=== PATIENT | female | born 1970 | race Caucasian/White ===

== ENCOUNTER 2025-01-16 11:00 | Inpatient (IN) | payer BC ==
[2025-01-16 11:22] VITALS: BMI 42.4
[2025-01-26] MEDS ORDERED: metroNIDAZOLE 500 MG (100 mL) BAG ONE (06:22)
[2025-01-26] MEDS ORDERED: Acetaminophen 325 MG TAB ONE (06:22)
[2025-01-26] MEDS ORDERED: Heparin 5,000 UNITS/ML VIAL ONE (06:22)
[2025-01-26] MEDS ORDERED: Bupivacaine 0.25% HCL 30 ML VIAL ONE (06:55)
[2025-01-26] MEDS ORDERED: Lidocaine 1% PF 5 ML VIAL ONE (07:04)
[2025-01-26] MEDS ORDERED: fentaNYL PF 100 MCG/2 ML SYRINGE ONE ×2 (07:04→09:19)
[2025-01-26] MEDS ORDERED: Rocuronium Bromide 10 MG/ML (10ML VIAL) ONE (07:35)
[2025-01-26] MEDS ORDERED: PROPOFOL 200 MG/20 ML VIAL ONE (07:35)
[2025-01-26] MEDS ORDERED: Ondansetron PF 4 MG/2 ML Vial ONE ×2 (09:08→10:51)
[2025-01-26] MEDS ORDERED: SUGAMMADEX SODIUM 200 MG/2 ML VIAL ONE (09:09)
[2025-01-26] MEDS ORDERED: hydrALAZINE 20 MG/ML VIAL SLOW IVP PRN (09:39)
[2025-01-26] MEDS ORDERED: HYDROmorphone 0.5 MG/0.5 ML SYRINGE ONE ×2 (09:57→10:35)
[2025-01-26] MEDS: Ondansetron PF 4 MG/2 ML Vial IVP PRN (12:36)
[2025-01-26] MEDS: Ketorolac Tromethamine 30 MG (1 mL) VIAL IVP SCH (12:38)
[2025-01-27 04:59] LABS: #Basophils 0.05 10x3/uL (0.0-0.2); #Eosinophils 0.15 10x3/uL (0.0-0.7); #Monocytes 1.08 10x3/uL (0.11-0.59); #Neutrophils 6.72 10x3/uL (1.40-6.50); %Basophils 0.5 % (0.0-1.0); %Eosinophils 1.5 % (0.0-10.0); %Lymphocytes 20.2 % (21.0-51.0); %Monocytes 10.7 % (0.0-10.0); %Neutrophils 66.8 % (42.0-75.0); Hematocrit 37.8 % (36.0-47.0); Hemoglobin 12.0 g/dL (12.0-16.0); Mean Corpuscular Hemoglobin 29.7 pg (27.0-31.0); Mean Corpuscular Volume 93.6 fL (78.0-98.0); Platelet Count 197 10x3/uL (130-400); Red Blood Cell (RBC) Count 4.04 mill/uL (4.20-5.40); White Blood Cell (WBC) Count 10.06 10x3/uL (4.8-10.8)
[2025-01-27 05:21] LABS: Anion Gap 11 mmol/L (10-20); BUN (Urea Nitrogen) 10 mg/dL (9.8-20.1); Calc. Creatinine Clearance 191 mL/min (70-130); Calcium 8.7 mg/dL (7.8-10.44); Carbon Dioxide 26 mmol/L (22-29); Chloride 109 mmol/L (98-107); Glucose 102 mg/dL (70-105); Potassium 4.1 mmol/L (3.5-5.1); Sodium 142 mmol/L (136-145)
[2025-01-27] MEDS: Pantoprazole 40 MG DR.TAB PO SCH (09:49)
[2025-01-27] MEDS: Enoxaparin 40 MG (0.4 mL) SYRINGE SC SCH ×2 (09:49→21:00)
[2025-01-28] MEDS: Milk Of Magnesia 30 ML UDCUP PO SCH ×2 (08:10→11:57)
[2025-01-28 16:23] VITALS: BP 154/94; TEMP 98.4
== END 2025-01-28 16:46 | disposition home or self-care (01) | DRG 330 ==
LOC: EDSTATUS 11:00 → SURG A 01-26 06:13
PROVIDERS: ADMIT Surgery; ATTEND Surgery
PROC: 0DBP4ZZ Excision of Rectum, Percutaneous Endoscopic Approach (ICD-10-PCS; principal; 2025-01-26)
PROC: 0DBN4ZZ Excision of Sigmoid Colon, Percutaneous Endoscopic Approach (ICD-10-PCS; 2025-01-26)
PROC: 8E0W4CZ Robotic Assisted Procedure of Trunk Region, Percutaneous Endoscopic Approach (ICD-10-PCS; 2025-01-26)
DX: C20 Malignant neoplasm of rectum (principal); Z68.41 Body mass index [BMI] 40.0-44.9, adult; Z90.49 Acquired absence of other specified parts of digestive tract; Z98.890 Other specified postprocedural states; Z98.891 History of uterine scar from previous surgery; E66.9 Obesity, unspecified
CPT/HCPCS: 36415; 36416; 80048; 85025; 88309; C1776; C1889; J0169; J0665; J1100; J1171; J1644; J1650; J1885; J2250; J2270; J2405; J2550; J2704; J3010; S2900

== ENCOUNTER 2025-01-16 11:08 | Outpatient (CLI) | payer BC ==
[2025-01-16 12:39] LABS: #Basophils 0.04 10x3/uL (0.0-0.2); #Eosinophils 0.40 10x3/uL (0.0-0.7); #Monocytes 0.62 10x3/uL (0.11-0.59); #Neutrophils 4.45 10x3/uL (1.40-6.50); %Basophils 0.5 % (0.0-1.0); %Eosinophils 5.3 % (0.0-10.0); %Lymphocytes 27.1 % (21.0-51.0); %Monocytes 8.2 % (0.0-10.0); %Neutrophils 58.6 % (42.0-75.0); Hematocrit 43.1 % (36.0-47.0); Hemoglobin 14.3 g/dL (12.0-16.0); Mean Corpuscular Hemoglobin 30.5 pg (27.0-31.0); Mean Corpuscular Volume 91.9 fL (78.0-98.0); Platelet Count 250 10x3/uL (130-400); Red Blood Cell (RBC) Count 4.69 mill/uL (4.20-5.40); White Blood Cell (WBC) Count 7.59 10x3/uL (4.8-10.8)
[2025-01-16 12:58] LABS: ALT (SGPT) 30 U/L (Less than 34); AST (SGOT) 25 U/L (11-34); Albumin 4.1 g/dL (3.1-4.5); Alkaline Phosphatase 79 U/L (40-110); Anion Gap 16 mmol/L (10-20); BUN (Urea Nitrogen) 18 mg/dL (9.8-20.1); Bilirubin, Total 0.4 mg/dL (0.3-1.2); Calc. Creatinine Clearance 0 mL/min (70-130); Calcium 9.5 mg/dL (7.8-10.44); Carbon Dioxide 20 mmol/L (22-29); Chloride 106 mmol/L (98-107); Globulin 3.1 g/dL (2.4-3.5); Glucose 94 mg/dL (70-105); Potassium 3.8 mmol/L (3.5-5.1); Sodium 138 mmol/L (136-145)
== END 2025-01-16 11:09 | disposition home or self-care (01) ==
LOC: LABBT 11:08
PROVIDERS: ATTEND Surgery
DX: Z01.818 Encounter for other preprocedural examination (principal); C20 Malignant neoplasm of rectum
CPT/HCPCS: 80053; 82378; 85025; 93005; 93010